=== PATIENT | male | born 1960 | race Caucasian/White ===

== ENCOUNTER 2016-08-19 07:37 | Emergency (ER) | payer MEDICAID, OTHER ==
[2016-08-19 07:50] VITALS: BP 148/98
[2016-08-19] MEDS ORDERED: Ondansetron 4 MG/2 ML SDV IVPUSH PRN (08:08)
[2016-08-19] MEDS ORDERED: Lactated Ringers 1,000 ML IV SCH (08:15)
[2016-08-19] MEDS ORDERED: LORazepam 2 MG/ML Syringe IVPUSH PRN (08:29)
[2016-08-19] MEDS ORDERED: MVI, Adult with Vitamin K 10 ML, Folic Acid 1 MG, Thiamine 100 MG, Magnesium Sulfate 2 ... IV SCH ×5 (08:30)
--- NOTE | 2016-08-19 08:35 | EDM.PDOC ---
ED HPI GENERAL MEDICAL PROBLEM - General Chief Complaint: Gastrointestinal Problem Stated Complaint: SICK/NAUSEA Time Seen by Provider: 08/19/16 08:19 Source of Information: Reports: Patient History Limitations: Reports: No Limitations - History of Present Illness INITIAL COMMENTS - FREE TEXT/NARRATIVE: Patient presents to ER with nausea and vomiting. has been going on now for several days. Has vomited 3-4 times each day. No diarrhea. Unable to tolerate much for solid foods. has been drinking flavored water and tolerating sips of that. Admits that he is a recovering alcoholic, has been drinking beer for the last few days and feels that may have triggered this as well. Denies abdominal pain or diarrhea. He has been travelling [place] on [place], been staying here in [place] for about a week in a tent in a camp[place]. No history of abdominal concerns. He states has a history of COPD and acid reflux. No fevers. Duration: Day(s): Location: Reports: Abdomen Quality: Reports: Ache Severity: Moderate Worsens with: Reports: Eating Associated Symptoms: Reports: cough w sputum, Malaise, Nausea/Vomiting, Other ( shakes). 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 Denies: Fever HEENT: Denies: Ear Pain, Rhinitis, Sinus Problem, Throat Pain Respiratory: Reports: Wheezing, Cough. Denies: Shortness of Breath Cardiovascular: Denies: Chest Pain, Edema, Lightheadedness Endocrine: Reports: Fatigue GI/Abdominal: Reports: Abdominal Pain, Nausea, Vomiting. Denies: Constipation, Diarrhea : Reports: No Symptoms Musculoskeletal: Reports: No Symptoms Skin: Reports: No Symptoms ED EXAM, GI/ABD - Physical Exam Exam: See Below Exam Limited By: No Limitations General Appearance: Alert, WD/WN, No Apparent Distress Eyes: Bilateral: EOMI Ears: Normal External Exam, Normal TMs Nose: Normal Inspection, No Blood Throat/Mouth: Normal Inspection, Normal Oropharynx Head: Normocephalic Neck: Normal Inspection, Supple, Non-Tender Respiratory/Chest: No Respiratory Distress, Decreased Breath Sounds, Wheezing Cardiovascular: Regular Rate, Rhythm, No Edema GI/Abdominal: Normal Bowel Sounds, Soft, Non-Tender Neurological: Alert, Oriented Skin Exam: Warm, Dry Course - Vital Signs Last Recorded V/S: Last Vital Signs Temp 98.6 F 08/19/16 07:45 Pulse 114 H 08/19/16 07:45 Resp 20 08/19/16 07:45 BP 148/98 H 08/19/16 07:45 Pulse Ox 93 L 08/19/16 07:45 - Orders/Labs/Meds Orders: Active Orders 24 hr Category Date Time Status Abdomen 2V AP Flat Upright [CR] Stat Exams 08/19/16 08:33 Taken Labs: Laboratory Tests 08/19/16 08/19/16 08/19/16 Range/Units 08:39 08:39 09:48 WBC 9.4 (5.0-10.0) 10^3/uL RBC 4.60 (4.50-6.00) 10^6/uL Hgb 15.2 (14.0-18.0) g/dL Hct 44.4 (40.0-54.0) % MCV 96.5 H (82.0-94.0) fL MCH 33.0 H (27.0-32.0) pg MCHC 34.2 (33.0-38.0) g/dL RDW Coeff of Melvi 13.0 (11.0-15.0) % Plt Count 187 (150-400) 10^3/uL Neut % (Auto) 81.5 (35-85) % Lymph % (Auto) 11.2 (10-55) % Emery % (Auto) 7.2 (0-16) % Eos % (Auto) 0 (0-5) % Baso % (Auto) 0.1 (0-3) % Neut # (Auto) 7.64 H (1.80-7.00) 10^3/uL Lymph # (Auto) 1.05 (1.00-4.80) 10^3/uL Emery # (Auto) 0.68 (0.00-0.80) 10^3/uL Eos # (Auto) 0.00 (0.00-0.45) 10^3/uL Baso # (Auto) 0.01 10^3/uL Sodium 142 (136-145) mEq/L Potassium 4.1 (3.5-5.0) mEq/L Chloride 101 (98-106) mEq/L Carbon Dioxide 28 (21-32) mmol/L BUN 11 (7-18) mg/dL Creatinine 0.9 (0.7-1.3) mg/dL Est Cr Clr Drug Dosing 93.83 mL/min Estimated GFR (MDRD) > 60 (>=60) mL/min Glucose 77 (75-99) mg/dL Calcium 8.7 (8.4-10.1) mg/dL Total Bilirubin 0.7 (0.0-1.0) mg/dL AST 72 H (15-37) U/L ALT 74 (12-78) U/L Alkaline Phosphatase 51 (46-116) U/L Total Protein 6.7 (6.4-8.2) g/dL Albumin 3.8 (3.4-5.0) g/dL Amylase 93 (25-115) U/L Urine Color Yellow (YELLOW) Urine Appearance Clear (CLEAR) Urine pH 7.0 (4.5-8.0) Ur Specific White Owl 1.015 (1.003-1.020) Urine Protein 30 H (NEGATIVE) mg/dL Urine Glucose (UA) Negative (NEGATIVE) mg/dL Urine Ketones 40 H (NEGATIVE) mg/dL Urine Occult Blood Moderate H (NEGATIVE) Urine Nitrite Negative (NEGATIVE) Urine Bilirubin Negative (NEGATIVE) Urine Urobilinogen 1.0 (0.2-1.0) EU/dL Ur Leukocyte Esterase Negative (NEGATIVE) Urine RBC 5-10 H (0-5) /HPF Urine WBC Not seen (0-5) /HPF Hyaline Casts Occasional H (NOT SEEN) /LPF Urine Opiates Screen (NEGATIVE) Ur Oxycodone Screen (NEGATIVE) Urine Methadone Screen (NEGATIVE) Ur Barbiturates Screen (NEGATIVE) U Tricyclic Antidepress (NEGATIVE) Ur Phencyclidine Scrn (NEGATIVE) Ur Amphetamine Screen (NEGATIVE) U Methamphetamines Scrn (NEGATIVE) Urine MDMA Screen (NEGATIVE) U Benzodiazepines Scrn (NEGATIVE) Urine Cocaine Screen (NEGATIVE) U Marijuana (THC) Screen (NEGATIVE) 08/19/16 Range/Units 09:52 WBC (5.0-10.0) 10^3/uL RBC (4.50-6.00) 10^6/uL Hgb (14.0-18.0) g/dL Hct (40.0-54.0) % MCV (82.0-94.0) fL MCH (27.0-32.0) pg MCHC (33.0-38.0) g/dL RDW Coeff of Melvi (11.0-15.0) % Plt Count (150-400) 10^3/uL Neut % (Auto) (35-85) % Lymph % (Auto) (10-55) % Emery % (Auto) (0-16) % Eos % (Auto) (0-5) % Baso % (Auto) (0-3) % Neut # (Auto) (1.80-7.00) 10^3/uL Lymph # (Auto) (1.00-4.80) 10^3/uL Emery # (Auto) (0.00-0.80) 10^3/uL Eos # (Auto) (0.00-0.45) 10^3/uL Baso # (Auto) 10^3/uL Sodium (136-145) mEq/L Potassium (3.5-5.0) mEq/L Chloride (98-106) mEq/L Carbon Dioxide (21-32) mmol/L BUN (7-18) mg/dL Creatinine (0.7-1.3) mg/dL Est Cr Clr Drug Dosing mL/min Estimated GFR (MDRD) (>=60) mL/min Glucose (75-99) mg/dL Calcium (8.4-10.1) mg/dL Total Bilirubin (0.0-1.0) mg/dL AST (15-37) U/L ALT (12-78) U/L Alkaline Phosphatase (46-116) U/L Total Protein (6.4-8.2) g/dL Albumin (3.4-5.0) g/dL Amylase (25-115) U/L Urine Color (YELLOW) Urine Appearance (CLEAR) Urine pH (4.5-8.0) Ur Specific White Owl (1.003-1.020) Urine Protein (NEGATIVE) mg/dL Urine Glucose (UA) (NEGATIVE) mg/dL Urine Ketones (NEGATIVE) mg/dL Urine Occult Blood (NEGATIVE) Urine Nitrite (NEGATIVE) Urine Bilirubin (NEGATIVE) Urine Urobilinogen (0.2-1.0) EU/dL Ur Leukocyte Esterase (NEGATIVE) Urine RBC (0-5) /HPF Urine WBC (0-5) /HPF Hyaline Casts (NOT SEEN) /LPF Urine Opiates Screen Negative (NEGATIVE) Ur Oxycodone Screen Negative (NEGATIVE) Urine Methadone Screen Negative (NEGATIVE) Ur Barbiturates Screen Negative (NEGATIVE) U Tricyclic Antidepress Negative (NEGATIVE) Ur Phencyclidine Scrn Negative (NEGATIVE) Ur Amphetamine Screen Negative (NEGATIVE) U Methamphetamines Scrn Negative (NEGATIVE) Urine MDMA Screen Negative (NEGATIVE) U Benzodiazepines Scrn Negative (NEGATIVE) Urine Cocaine Screen Negative (NEGATIVE) U Marijuana (THC) Screen Positive H (NEGATIVE) Meds: Medications Discontinued Medications Generic Name Dose Route Start Last Admin Trade Name Freq PRN Reason Stop Dose Admin Lactated Ringer's 1,000 mls @ 250 mls/hr 08/19/16 08:15 08/19/16 08:13 Ringers, Lactated IV 250 mls/hr ASDIRECTED MATTHIEU Administration Multivitamins/Minerals 10 ml/ 1,015.2 mls @ 250 mls/hr 08/19/16 08:30 08:40 Folic Acid 1 mg/ Thiamine HCl IV 250 mls/hr 100 mg/ Magnesium Sulfate 2 gm ASDIRECTED MATTHIEU Administration / Sodium Chloride Lorazepam 0.5 mg 08/19/16 08:29 08/19/16 09:07 Ativan IVPUSH 0.5 mg ASDIRECTED PRN Administration Anxiety Ondansetron HCl 4 mg 08/19/16 08:08 06/28/17 08:15 Zofran IVPUSH 4 mg Q6H PRN Administration Nausea Pantoprazole Sodium 40 mg 08/19/16 08:45 08/19/16 08:56 Protonix Iv IVPUSH 40 mg Q24H MATTHIEU Administration - Re-Assessments/Exams Free Text/Narrative Re-Assessment/Exam: 08/19/16 1300 Patient feeling better. No vomiting. Does continue to cough. Banana bag completed. Lab and xray are negative. Will discharge home. Zofran given. Suggested starting Prilosec and consider avoiding stimulants. Is leaving to head back to [place] in 2-3 days. Encouraged him to follow up if ongoing abdominal concerns prior to leaving. Departure - Departure Time of Disposition: 13:25 Disposition: Home, Self-Care 01 Condition: Fair Clinical Impression: Gastroenteritis, GERD (gastroesophageal reflux disease) - Discharge Information Referrals: PCP,None [Primary Care Provider] - Forms: ED Department Discharge Additional Instructions: 1. Push fluids 2. Zofran for nausea as needed 3. Avoid stimulants, ie alcohol, caffeine, nicotine, recreational drugs that increase issues with reflux 4. Consider daily Prilosec 5. Follow up for ongoing concerns - My Orders Last 24 Hours: My Active Orders 08/19/16 08:33 Abdomen 2V AP Flat Upright [CR] Stat - Assessment/Plan Last 24 Hours: My Active Orders 08/19/16 08:33 Abdomen 2V AP Flat Upright [CR] Stat
[2016-08-19] MEDS ORDERED: Pantoprazole 40 MG Vial IVPUSH SCH (08:45)
[2016-08-19 12:50] LABS: CHLORIDE,CL 101 mEq/L (98-106); SODIUM,NA 142 mEq/L (136-145)
== END 2016-08-19 13:35 | disposition home or self-care (01) ==
LOC: CC.ED 07:37
DX: K52.9 Noninfective gastroenteritis and colitis, unspecified (principal); K21.9 Gastro-esophageal reflux disease without esophagitis; J44.9 Chronic obstructive pulmonary disease, unspecified; F17.210 Nicotine dependence, cigarettes, uncomplicated; Z91.048 Other nonmedicinal substance allergy status
CPT/HCPCS: 36415; 74020; 80053; 80305; 81001; 82150; 85025; 96365; 96366; 96374; 96375; 99284; C9113; J2060; J2405; J3411; J3475; J7030; J7120; 96376; J3490